=== PATIENT | female | born 1995 | race Caucasian/White ===

== ENCOUNTER → 2018-06-03 | Outpatient (CLI) | payer BC ==
--- NOTE | 2018-06-03 19:01 | RADRPT ---
Vent Rate: 76 bpm RR Interval: 0 msec NC Interval: 166 msec QRS Duration: 78 msec QT Interval: 364 msec QTC Interval: 409 msec P-R-T [place]: 75 - 77 - 44 degrees Normal sinus rhythm with sinus arrhythmia Normal ECG Electronically Signed By: Watson Hernadez
== END | disposition home or self-care (01) ==
LOC: EKG 08:53
PROVIDERS: ATTEND Obstetrics & Gynecology
DX: R00.2 Palpitations (principal)
CPT/HCPCS: 93005